=== PATIENT | male | born 1975 | race Caucasian/White ===

== ENCOUNTER 2016-10-16 15:38 | Inpatient (IN) | payer OTHER ==
[~2016-10-16] VITALS: Ht 185.4 cm; Wt 203.4 kg
[~2016-10-16 15:38] MED LIST: ZYRTEC10 MG PO
[2016-10-16 18:08] LABS: HEMOGLOBIN 14.2 gm/dl (14.0-17.5); RED BLOOD COUNT 4.65 M/UL (4.20-5.50)
[2016-10-16 18:41] LABS: BUN/CREATININE RATIO 13 (0-10)
[2016-10-16] MEDS ORDERED: BUSPIRONE HCL15 MG PO (22:32)
[2016-10-16] MEDS ORDERED: PROPAFENONE HC150 MG PO (22:33)
[2016-10-16] MEDS ORDERED: TRIAMTERENE-HC1 EACH PO (22:34)
[2016-10-16] MEDS ORDERED: SINGULAIR10 MG PO (22:35)
[2016-10-16] MEDS ORDERED: XARELTO20 MG PO (22:36)
[2016-10-16] MEDS ORDERED: MUCINEX DM ER1 EAC1 PO (22:36)
[2016-10-16] MEDS ORDERED: INDERAL TAB 2020 MG PO (22:37)
[2016-10-16] MEDS ORDERED: FOLIC ACID 1 MG1 MG PO (22:37)
[2016-10-16] MEDS ORDERED: FLONASE 0.05% N16 GM (22:39)
[2016-10-18 05:24] LABS: HEMOGLOBIN 13.5 gm/dl (14.0-17.5); RED BLOOD COUNT 4.42 M/UL (4.20-5.50); WHITE BLOOD COUNT 5.1 K/UL (4.5-11.0)
[2016-10-18 05:53] LABS: BUN/CREATININE RATIO 15 (0-10)
[2016-10-19 04:39] LABS: BUN/CREATININE RATIO 11 (0-10)
[2016-10-20 05:34] LABS: BUN/CREATININE RATIO 13 (0-10)
[2016-10-20] MEDS ORDERED: CLINDAMYCIN HC300 MG PO (13:15)
[2016-10-20] MEDS ORDERED: LORTAB 5-325 M1 EACH PO (13:15)
[2016-10-20] MEDS ORDERED: NOVOLOG FL100 UNIT/1 SQ (13:16)
[2016-10-20] MEDS ORDERED: LEVEMIR FL100 UNIT/1 SQ (13:16)
== END 2016-10-20 10:42 | disposition home or self-care (01) | DRG 603 ==
LOC: ER1 15:38 → ZEROF 21:00 → MED SURG 4 21:00
PROVIDERS: Emergency Medicine; Student in an Organized Health Care Education/Training Program; ADMIT Internal Medicine
DX: L03.116 Cellulitis of left lower limb (principal); E11.65 Type 2 diabetes mellitus with hyperglycemia; K76.0 Fatty (change of) liver, not elsewhere classified; I10 Essential (primary) hypertension; I48.0 Paroxysmal atrial fibrillation; E66.01 Morbid (severe) obesity due to excess calories; J30.9 Allergic rhinitis, unspecified; Z79.01 Long term (current) use of anticoagulants; Z86.711 Personal history of pulmonary embolism; Z86.718 Personal history of other venous thrombosis and embolism; Z95.810 Presence of automatic (implantable) cardiac defibrillator; Z82.49 Family history of ischemic heart disease and other diseases of the circulatory system; Z79.899 Other long term (current) drug therapy
CPT/HCPCS: 36415; 73701; 76705; 80048; 80053; 80061; 80074; 80202; 82962; 83036; 83605; 83735; 83880; 85025; 85027; 85379; 85610; 85730; 87040; 93971; 96365; 96366; 99284; J3370; J7030; J7040; J7050; J7070; Q9962

== ENCOUNTER → 2020-05-24 | Outpatient (CLI) | payer OTHER ==
[~2020-05-24] MED LIST changes: +ADMELOG SO100 UNIT/1 SQ; +ALLEGRA ALLERG180 MG PO; +ALLERGY EYE DRO10 M1 EYEBOTH; +BACTRIM DS TAB1 EACH PO; +BASAGLAR K100 UNIT/1 SQ; +BUSPIRONE HCL30 MG PO; +CLEOCIN HCL150 MG PO; +CLEOCIN HCL300 MG PO; +CLINDAMYCIN HC300 MG PO; +CYMBALTA60 MG PO; +FLONASE 0.05% N16 GM; +FOLIC ACID 1 MG1 MG PO; +GLUCOPHAGE XR500 MG PO; +INDERAL TAB 2020 MG PO; +KEFLEX CAP 500500 MG PO; +LACRILUBE OPTH3.5 GM OD; +LEVEMIR FL100 UNIT/1 SQ; +LEVEMIR100 UNIT/1 SQ; +LISINOPRIL5 MG PO; +LORTAB 5-325 M1 EACH PO; +MUCINEX DM ER1 EAC1 PO; +NOVOLOG FL100 UNIT/1 SQ; +PLAQUENIL 200200 MG PO; +PREDNISONE20 MG PO; +PROPAFENONE HC150 MG PO; +ROCEPHIN 2 GM AD2 GM IV; +SINGULAIR10 MG PO; +TRIAMTERENE-HC1 EACH PO; +VALTREX1000 MG PO; +VIBRAMYCIN100 MG PO; +XARELTO20 MG PO
== END ==
LOC: KOH-I 12:00
DX: M25.512 Pain in left shoulder (principal); M25.511 Pain in right shoulder
CPT/HCPCS: 73030

== ENCOUNTER 2021-06-17 11:54 | Inpatient (IN) | payer MEDICARE, OTHER ==
[~2021-06-17] VITALS: Ht 185.4 cm; Wt 192.8 kg
[2021-06-17] MEDS ORDERED: HYDROXYCHLOROQ200 MG PO (19:30)
[2021-06-17] MEDS ORDERED: PROPAFENONE HC150 MG PO (19:34)
[2021-06-17] MEDS ORDERED: AZULFIDINE500 MG PO (19:35)
[2021-06-17] MEDS ORDERED: CLARITIN10 M2 PO (19:36)
[2021-06-17] MEDS ORDERED: FAMOTIDINE40 MG PO (19:36)
[2021-06-17] MEDS ORDERED: MONTELUKAST SOD10 MG PO (19:37)
[2021-06-17] MEDS ORDERED: ZYLOPRIM100 MG PO (19:37)
[2021-06-17 21:33] LABS: BUN/CREATININE RATIO 16 (0-10)
[2021-06-18 05:36] LABS: HEMOGLOBIN 13.6 gm/dl (14.0-17.5)
[2021-06-18 08:41] LABS: HEMOGLOBIN 14.1 gm/dl (14.0-17.5); RED BLOOD COUNT 4.52 M/UL (4.20-5.50); WHITE BLOOD COUNT 4.6 K/UL (4.5-11.0)
[2021-06-18 09:34] LABS: BUN/CREATININE RATIO 20 (0-10)
--- NOTE | 2021-06-18 20:38 | NUR ---
06/17/21 0500 PT WAS DISCOVERED HAVING BRIGHT RED BLOOD FROM HIS VOSS CATHETER. THIS CATHETER WAS INSERTED ON DAYSKSFT TODAY. [facility] NUR[facility] REPORTED THAT THERE WERE TWO ATTEMPTS AT INSERTION AND PT HAS A COUDE CATH [address] KOEHLER WAS NOTIFIED OF BLOOD IN CATHETER AND ORDERED TO HOLD XARELTO AND H&H NOW AND IN 3 HOURS REPEAT LABS. 06[facility]18[facility]21 18[facility] HAS HAD DECREASED URINE OUTPUT AND LARGER SIZE CLOTS. DR RICE IS ON UNIT AT THIS TIME. LEO AND MYSELF SPEAK TO MD ABOUT THE POSSIBLE NEED FOR TRANSFER FOR UROLOGY. 06/18/212029 DR. RICE REPORTS THAT SHE HAS CALLED [facility] AND [facility]. NO BEDS AVAILABLE. FOR TRANSFER FOR UROLOGY. SHE ALSO REPORTS CALLING DR. PEREZ AND LEAVING A MESSAGE. THE PATIENT AND FAMILY HAS BEEN UPDATED VIA PHONE FOR POSSIBLE TRANSFER AND IS AGREEABLE.
[2021-06-19 06:06] LABS: HEMOGLOBIN 14.2 gm/dl (14.0-17.5); RED BLOOD COUNT 4.61 M/UL (4.20-5.50); WHITE BLOOD COUNT 7.5 K/UL (4.5-11.0)
[2021-06-20 05:33] LABS: RED BLOOD COUNT 4.53 M/UL (4.20-5.50)
[2021-06-20 05:38] LABS: WHITE BLOOD COUNT 16.6 K/UL (4.5-11.0)
== END 2021-06-20 13:43 | disposition short-term general hospital (02) | DRG 208 ==
LOC: CCU 17:46
PROVIDERS: Internal Medicine Pulmonary Disease; ADMIT Internal Medicine
PROC: 8E0ZXY6 Isolation (ICD-10-PCS; principal; 2021-06-17)
PROC: XW033E5 Introduction of Remdesivir Anti-infective into Peripheral Vein, Percutaneous Approach, New Technology Group 5 (ICD-10-PCS; 2021-06-17)
PROC: 3E0333Z Introduction of Anti-inflammatory into Peripheral Vein, Percutaneous Approach (ICD-10-PCS; 2021-06-17)
PROC: 5A09457 Assistance with Respiratory Ventilation, 24-96 Consecutive Hours, Continuous Positive Airway Pressure (ICD-10-PCS; 2021-06-17)
PROC: XW033H5 Introduction of Tocilizumab into Peripheral Vein, Percutaneous Approach, New Technology Group 5 (ICD-10-PCS; 2021-06-18)
PROC: 5A1945Z Respiratory Ventilation, 24-96 Consecutive Hours (ICD-10-PCS; 2021-06-19)
PROC: 3E033XZ Introduction of Vasopressor into Peripheral Vein, Percutaneous Approach (ICD-10-PCS; 2021-06-19)
PROC: 0BH18EZ Insertion of Endotracheal Airway into Trachea, Via Natural or Artificial Opening Endoscopic (ICD-10-PCS; 2021-06-19)
PROC: 02HV33Z Insertion of Infusion Device into Superior Vena Cava, Percutaneous Approach (ICD-10-PCS; 2021-06-19)
DX: U07.1 COVID-19 (principal); J15.9 Unspecified bacterial pneumonia; J80 Acute respiratory distress syndrome; A41.9 Sepsis, unspecified organism; R65.21 Severe sepsis with septic shock; J12.82 Pneumonia due to coronavirus disease 2019; Z68.43 Body mass index [BMI] 50.0-59.9, adult; N17.9 Acute kidney failure, unspecified; E66.2 Morbid (severe) obesity with alveolar hypoventilation; E87.1 Hypo-osmolality and hyponatremia; F41.9 Anxiety disorder, unspecified; F32.A Depression, unspecified; M06.9 Rheumatoid arthritis, unspecified; I87.2 Venous insufficiency (chronic) (peripheral); I10 Essential (primary) hypertension; I49.5 Sick sinus syndrome; K76.0 Fatty (change of) liver, not elsewhere classified; E11.65 Type 2 diabetes mellitus with hyperglycemia; R31.0 Gross hematuria; I48.0 Paroxysmal atrial fibrillation; T38.0X5A Adverse effect of glucocorticoids and synthetic analogues, initial encounter; E87.6 Hypokalemia; Z82.49 Family history of ischemic heart disease and other diseases of the circulatory system; Z86.718 Personal history of other venous thrombosis and embolism; Z79.01 Long term (current) use of anticoagulants; Z90.89 Acquired absence of other organs; Z95.0 Presence of cardiac pacemaker; Z90.49 Acquired absence of other specified parts of digestive tract; Z79.899 Other long term (current) drug therapy; Z88.8 Allergy status to other drugs, medicaments and biological substances
CPT/HCPCS: 31500; 36415; 36600; 71045; 80048; 80053; 80076; 81001; 82550; 82553; 82728; 82803; 82962; 83605; 83615; 83735; 83880; 84100; 84133; 84300; 84484; 85014; 85018; 85025; 85379; 85384; 85610; 85730; 86140; 87040; 87081; 87086; 89050; 94003; 94640; 94660; 94760; C1751; C9113; J0248; J0330; J0692; J1100; J1940; J2020; J2250; J2704; J3010; J7030; P9047